=== PATIENT | male | born 1970 | race Caucasian/White ===

== ENCOUNTER 2020-07-22 21:50 | Inpatient (IN) | payer SELFPAY ==
[~2020-07-22] VITALS: Ht 175.3 cm; Wt 73.9 kg
[2020-07-23 02:18] LABS: HEMATOCRIT 54.1 % (42.0-52.0); HEMOGLOBIN 18.8 g/dl (13.5-17.5); MEAN CORPUSCULAR HEMOGLOBIN 31.3 pg (27.0-33.0); MEAN CORPUSCULAR HGB CONC 34.8 g/dl (32.0-36.5); MEAN CORPUSCULAR VOLUME 90.2 fl (80.0-96.0); PLATELET COUNT, AUTOMATED 324 10^3/uL (150-450); WHITE BLOOD COUNT 9.1 10^3/uL (4.0-10.0)
[2020-07-23 02:37] LABS: AMPHETAMINES LEVEL URINE NEGATIVE (NEGATIVE); BARBITURATES URINE NEGATIVE (NEGATIVE); BENZODIAZEPINES URINE NEGATIVE (NEGATIVE); CANNABINOIDS URINE NEGATIVE (NEGATIVE); COCAINE METABOLITE URINE NEGATIVE (NEGATIVE); METHADONE URINE NEGATIVE (NEGATIVE); OPIATES URINE NEGATIVE (NEGATIVE); PHENCYCLIDINE URINE NEGATIVE (NEGATIVE)
[2020-07-23 02:47] LABS: RSV AMPLIFICATION NEGATIVE (NEGATIVE)
[2020-07-23 02:52] LABS: ACETAMINOPHEN LEVEL < 2.0 UG/ML (10.0-30.0); ALBUMIN 4.4 GM/DL (3.2-5.2); ALT/SGPT 48 U/L (12-78); BILIRUBIN,DIRECT 0.4 MG/DL (0.0-0.2); BILIRUBIN,TOTAL 1.3 MG/DL (0.2-1.0); BLOOD UREA NITROGEN 39 MG/DL (7-18); CALCIUM LEVEL 9.7 MG/DL (8.5-10.1); CARBON DIOXIDE LEVEL 30 MEQ/L (21-32); CHLORIDE LEVEL 98 MEQ/L (98-107); ETHYL ALCOHOL (ETHANOL) < 0.003 % (0.000-0.010); GLOMERULAR FILTRATION RATE 53.2 (>60); GLUCOSE, FASTING 80 MG/DL (70-100); POTASSIUM SERUM 3.4 MEQ/L (3.5-5.1); SALICYLATE LEVEL < 1.7 MG/DL (5.0-30.0); SODIUM LEVEL 137 MEQ/L (136-145); TOTAL PROTEIN 8.4 GM/DL (6.4-8.2)
--- NOTE | 2020-07-23 06:31 | ECGEPIP ---
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
[2020-07-24] MEDS ORDERED: ACETAMINOPHEN TAB 650MG DOSE (2X325MG) PO PRN (16:20)
[2020-07-24] MEDS ORDERED: OLANZapine 5 MG TAB PO PRN (16:20)
[2020-07-24] MEDS ORDERED: traZODone 50 MG TAB PO PRN (16:20)
[2020-07-24] MEDS ORDERED: MOM 30ML SUSPENSION UDC PO PRN (16:20)
[2020-07-24] MEDS ORDERED: MAALOX 30 ML SUSP *UDC PO PRN (16:20)
[2020-07-24] MEDS: risperiDONE 1 MG TAB PO SCH (21:00)
[2020-07-25 06:56] VITALS: BP 111/79
[2020-07-25] MEDS: risperiDONE 1 MG TAB PO SCH (09:00)
[2020-07-25] MEDS ORDERED: NICO1DIS7 TD (13:53)
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
== END 2020-07-25 16:17 | disposition home or self-care (01) | DRG 751 ==
LOC: M ED 21:50 → M ED INP 07-24 16:17 → M PSY 07-24 23:33
PROVIDERS: ADMIT Psychiatry & Neurology Psychiatry; ATTEND Psychiatry & Neurology Psychiatry
DX: F29 Unspecified psychosis not due to a substance or known physiological condition (principal); F15.150 Other stimulant abuse with stimulant-induced psychotic disorder with delusions; F17.210 Nicotine dependence, cigarettes, uncomplicated; Z56.0 Unemployment, unspecified; Z59.0 Homelessness; F16.10 Hallucinogen abuse, uncomplicated; Z91.19 Patient's noncompliance with other medical treatment and regimen